=== PATIENT | female | born 1950 | race Caucasian/White ===

== ENCOUNTER 2025-10-21 08:25 | Emergency (ER) | payer MEDICARE ==
[~2025-10-21] VITALS: Ht 165.1 cm; Wt 82.7 kg
[~2025-10-21 08:25] MED LIST: ATEN100T PO; FISH OIL; GREEN TEA; HYDR25TA4 PO; LOSA-416 PO; MULT-342 PO; vitamin B; vitamin D3
[2025-10-21 08:28] VITALS: TEMP 98.5
--- NOTE | 2025-10-21 08:39 | Physician Documentation ---
History of Present Illness General Chief Complaint: Mechanical Fall Stated Complaint: HEAD LAC/NO LOC/NO THINNNERS Time Seen by MD: 08:37 Source: patient Mode of Arrival: POV Exam Limitations: no limitations History of Present Illness Initial Comments 75 year old female with history of hypertension presents to the emergency department for complaints of a head strike that happened at 0500 today. Patient states that she had gotten a Roddy horse and when readjusting she had hit her head on her nightstand. She states she had also hit her knee. Patient denies any blood thinner use. She denies any loss of consciousness. Medication Reconciliation Allergies: Coded Allergies: Penicillins (Unverified Allergy, Unknown, 10/21/25) Scheduled Atenolol (Atenolol), 1 TABLET PO DAILY, (Reported) Hydrochlorothiazide (Hydrochlorothiazide), 1 TABLET PO DAILY, (Reported) Losartan* (Cozaar*), 1 TABLET PO DAILY, (Reported) Multivitamins (Multi-Day Vitamin), 1 TABLET PO DAILY, (Reported) Miscellaneous Medications [Fish Oil], (Reported) [green tea], (Reported) [vitamin B], (Reported) [vitamin D3], (Reported) Past Medical History Past Medical History: Hypertension, Colon Cancer Review of Systems All Other Systems at this time: Reviewed and Negative ROS Patient was asked, but denied any other symptoms. All other systems are negative other than those mentioned above. Physical Exam Physical Exam Vital Signs: RN Vital Signs have been reviewed: Yes, Temperature: 98.5, Source: Temporal, Heart Rate: 66, Respiratory Rate: 18, BP: 210/79, Pulse Oximetry: 99, Weight: 82.700 Oxygen Flow Rate: 0 Pulse Oximetry Reflects: adequate oxygenation Physical Exam VITALS: Reviewed and as above. GENERAL: Alert, no apparent distress. HEENT:3cm Contusion. Normocephalic, PERRL, EOMI. Dry mucosa, no erythema. RESPIRATORY: Lungs clear, normal breath sounds, no respiratory distress. CHEST: No accessory muscle use, no retractions. CV: Regular rate and rhythm. No edema, no murmur, No: JVD GI: Soft, non-tender, bowel sounds present. No rebound, guarding, or rigidity. BACK: No CVA tenderness, no swelling. MUSCULOSKELETAL: Abrasion to the right knee. No deformities, no edema SKIN: Warm and dry, no rash. NEURO: Oriented x4. No motor or sensory deficit. PSYCH: Normal mood and affect, no agitation. Procedures Laceration/Wound Repair Laceration/Wound Repair : Location: scalp Length (cm): 3 Anesthesia: Lidocaine w/ Epi Prep: irrigated by nurse Margins: revised Repaired: skin Wound Repaired With: sutures Suture Size/Type: 6-0, ethilon Number of Superficial Sutures: 4 Layer Closure?: Yes Tolerated Procedure Well?: yes, no complications Progress Results/Orders Results/Orders Orders - OHLMELIA SHOEMAKER MD Laceration/I&D Tray Set Up (10/21/25 08:44) General Nursing Order (10/21/25 08:44) Completed Orders - MELIA MASCORRO MD Lidocaine 1% W/Epi 1:100,000 (Xylocaine (10/21/25 08:45) Tetanus/Pertuss/Diph Acell/Pf (Boostrix (10/21/25 08:45) Vital Signs 10/21/25 10/21/25 10/21/25 08:28 10:12 10:15 Temp 98.5 Pulse 66 57 Resp 18 16 B/P (MAP) 210/79 176/79 (111) Pulse Ox 99 96 O2 Flow Rate 0 0 Medical Decision Making Additional information obtaine: old records Findings The patient is a 75-year-old female who struck her head on a piece of furniture she has a cervical spine tenderness she has a simple laceration to the hairline above the forehead the the patient has a wound cleansed she was infiltrated with 1% lidocaine and then her wound was sutured without complication the patient has some bruising to the knees but full range of motion and the knees were stable the patient is able to ambulate without difficulty patient's prior hospitalizations have a road been reviewed patient's pulse oximetry was interpreted as normal and adequate the patient has been advised that has sutures are absorbable Differential Diagnosis Knee contusion knee sprain, head contusion has a abrasion had laceration Departure Time of Disposition: 10:43 Disposition: 01 HOME / SELF CARE / HOMELESS Impression: Primary Impression: Scalp laceration Condition: Stable Discharge Instructions: Laceration Care, Adult, [id number] Referrals: NO PRIMARY CARE PROVIDER (PCP) Education Educated: Patient, Family Educated regarding: diagnosis, treatment Signature Scribe Signature: Scribed by Carl Ferrari Attestation: The note accurately reflects work and decisions made by me.Melia Mascorro MD 10/22/25 09:29 MELIA MASCORRO MD Oct 21, 2025 08:38
[2025-10-21] MEDS: LIDOcaine 1% W/epiNEPHrine 1:100,000 20ml vial IJ ONE (08:45)
[2025-10-21] MEDS: TETanus/Pertussis (Acell)/Diphther VAC/PF (Tdap-Adult) 0.5ml syringe IMVAC ONE (09:59)
[2025-10-21 10:15] VITALS: BP 176/79; PULSE 57; RESP 16; O2SAT 96
== END 2025-10-21 11:05 | disposition home or self-care (01) ==
LOC: ER 08:26
DX: S01.01XA Laceration without foreign body of scalp, initial encounter (principal); I10 Essential (primary) hypertension; Z88.0 Allergy status to penicillin; Z85.038 Personal history of other malignant neoplasm of large intestine; Z79.899 Other long term (current) drug therapy; W18.39XA Other fall on same level, initial encounter; Y93.89 Activity, other specified; Y92.89 Other specified places as the place of occurrence of the external cause; Y99.8 Other external cause status
CPT/HCPCS: 12002; 90715; 99283; G0008; J3490; 90471